=== PATIENT | female | born 1955 | race Caucasian/White ===

== ENCOUNTER 2018-02-08 12:32 | Emergency (ER) | payer OTHER ==
[2018-02-08] MEDS: DEXAMETHASONE 10 MG/ML 1 ML INJ IV (14:02)
[2018-02-08] MEDS: CEFTRIAXONE 1 GM/50 ML (PMX) 50 ML IVPB (14:05)
[2018-02-08] MEDS: SOD CHLORIDE 0.9% 500 ML IV (14:05)
[2018-02-08 14:07] LABS: ADD MAN DIFF? NO
[2018-02-08 14:09] LABS: WHITE BLOOD COUNT 8.5 10^3/ul (4.8-10.8)
[2018-02-08 14:09] LABS: BASOPHILS % 0.5 % (0.0-2.0); EOSINOPHILS # 0.3 10^3/ul (0.0-0.5); EOSINOPHILS % 3.6 % (0.0-7.0); HEMATOCRIT 40.5 % (37.0-47.0); HEMOGLOBIN 13.4 g/dl (12.0-16.0); LYMPHOCYTES # 2.2 10^3/ul (0.8-2.9); LYMPHOCYTES % 25.2 % (15.0-51.0); MEAN CORPUSCULAR HEMOGLOBIN 31.3 pg (29.0-33.0); MEAN CORPUSCULAR HGB CONC 33.1 g/dl (32.0-37.0); MEAN CORPUSCULAR VOLUME 94.6 fl (82.0-101.0); MEAN PLATELET VOLUME 10.2 fl (7.4-10.4); MONOCYTES % 11.7 % (0.0-11.0); NEUTROPHILS % 58.6 % (39.0-77.0); PLATELET COUNT 206 10^3/UL (140-415); RED BLOOD COUNT 4.28 10^6/ul (4.20-5.40); RED CELL DISTRIBUTION WIDTH 13.2 % (11.5-14.5)
[2018-02-08 14:27] LABS: ANION GAP 10 (8-16); BLOOD UREA NITROGEN 21 mg/dl (7-20); CARBON DIOXIDE 26 mmol/L (21-31); CHLORIDE 111 mmol/L (97-110); CREATININE 0.64 mg/dl (0.44-1.00); GLUCOSE 93 mg/dl (70-220); POTASSIUM 4.1 mmol/L (3.5-5.1); SODIUM 143 mmol/L (135-144)
[2018-02-08] MEDS: CIPROFLOXACIN 0.3% 2.5 ML OPH RIGHT EYE (15:15)
== END 2018-02-08 16:10 | disposition home or self-care (01) ==
LOC: FTE 12:32
DX: L03.213 Periorbital cellulitis (principal)
CPT/HCPCS: 36415; 70480; 80048; 85025; 96365; 96375; 99285-25

== ENCOUNTER 2018-09-25 03:28 | Emergency (ER) | payer OTHER ==
[2018-09-25] MEDS: HYDROCODONE/APAP (10/325) TAB PO (04:04)
== END 2018-09-25 04:10 | disposition home or self-care (01) ==
LOC: FTE 03:28
DX: K04.6 Periapical abscess with sinus (principal)
CPT/HCPCS: 99283; Z7502